=== PATIENT | male | born 1970 | race African-American/Black ===

== ENCOUNTER 2018-09-13 10:53 | Emergency (ER) | payer OTHER ==
[~2018-09-13] VITALS: Ht 188 cm; Wt 81.6 kg
[2018-09-13] MEDS ORDERED: CYCLOBENZAPRINE 10 MG TABLET. PO ONE (11:30)
[2018-09-13] MEDS ORDERED: HYDROcodone/APAP 5/325MG 1 TAB TABLET PO ONE (11:30)
[2018-09-13] MEDS ORDERED: LIDOCAINE/EPI/TETRACAINE TOPICAL GEL 3 ML. TP ONE (11:30)
[2018-09-13] MEDS ORDERED: DIPHTH,PERTUSS(ACELL),TET TOX 0.5 ML DISP.SYRIN. VAX IM ONE (11:30)
--- NOTE | 2018-09-13 12:27 | RAD ---
Examination: 2 views of the left tibia and fibula, 3 views of the lumbar spine, 4 views of the left knee, 2 views of the right hip with frontal view the pelvis HISTORY: History of right hip pain, back pain, fall COMPARISON: None available FINDINGS: There is mild compression change of L2 vertebral body, age indeterminate. Minimal retrolisthesis of L2 on L3. The facets appear to be well aligned. The bilateral femoral heads within the acetabula. The alignment of the tibia and fibula grossly appears unremarkable. The alignment of the knee joint grossly appears unremarkable. Mild soft tissue swelling identified in the infrapatellar region likely soft tissue injury. IMPRESSION: 1. Age indeterminate mild compression fracture of the L2 vertebral body. Correlate for point tenderness. 2. Mild soft tissue swelling identified in the left infrapatellar region likely soft tissue injury. Electronically signed by: Danny Arce MD (09/13/2018 12:24 PM) [id number]
--- NOTE | 2018-09-13 13:06 | PHYS DOC ---
Past Medical History Past Medical History: No Pertinent History Past Surgical History: No Surgical History Alcohol Use: None Drug Use: Marijuana Adult General Chief Complaint Chief Complaint: KNEE INJURY HPI HPI Patient is a 48 year old female with no significant medical history who presents today with left knee pain. Patient states he was walking a horse, he states horse took off running and he fell down hitting his left knee on a pipe. He is complaining of mild left knee pain, left marie pain. He states he has slight low back pain. Denies falling on his back. Denies any pain radiating to bilateral lower extremities. Denies any loss of bowel bladder function. He states his pain is worse on toughing his knee. He states immobilization has been relieving some of the pain. Review of Systems Review of Systems Constitutional: Denies fever or chills [] Eyes: Denies change in visual acuity, redness, or eye pain [] HENT: Denies nasal congestion or sore throat [] Respiratory: Denies cough or shortness of breath [] Cardiovascular: No additional information not addressed in HPI [] GI: Denies abdominal pain, nausea, vomiting, bloody stools or diarrhea [] : Denies dysuria or hematuria [] Musculoskeletal: Reports left knee pain. Reports low back pain. Integument: Denies rash or skin lesions [] Neurologic: Denies headache, focal weakness or sensory changes [] All other systems were reviewed and found to be within normal limits, except as documented in this note. Current Medications Current Medications Current Medications Medications (Trade) Dose Ordered Sig/Noam Start Time Stop Time Status Last Admin Dose Admin Acetaminophen/ Hydrocodone Bitart (Lortab 5/325) 2 tab 1X ONCE 09/13/18 11:30 09/13/18 11:31 DC 09/13/18 12:18 2 TAB Cyclobenzaprine HCl (Flexeril) 10 mg 1X ONCE 09/13/18 11:30 09/13/18 11:31 DC 09/13/18 12:18 10 MG Diphtheria/ Tetanus/Acell Pertussis (Boostrix) 0.5 ml ONCE ONCE 09/13/18 11:30 09/13/18 11:31 DC 09/13/18 12:20 0.5 ML Lidocaine/ Epinephrine (Let Topical) 3 ml 1X ONCE 09/13/18 11:30 09/13/18 11:31 DC 09/13/18 12:20 3 ML Allergies Allergies Allergies Coded Allergies Type Severity Reaction Last Updated Verified No Known Drug Allergies 09/13/18 No Physical Exam Physical Exam Constitutional: Well developed, well nourished, no acute distress, non-toxic appearance. [] HENT: Normocephalic, atraumatic, bilateral external ears normal, oropharynx moist, no oral exudates, nose normal. [] Eyes: PERRLA, EOMI, conjunctiva normal, no discharge. [] Neck: Normal range of motion, no tenderness, supple, no stridor. [] Cardiovascular:Heart rate regular rhythm, no murmur [] Lungs & Thorax: Bilateral breath sounds clear to auscultation [] Abdomen: Bowel sounds normal, soft, no tenderness, no masses, no pulsatile masses. [] Skin: Warm, dry, no erythema, no rash. [] Back: Diffuse paraspinal muscle tenderness the right lumbar spine, no midline lumbar spine tenderness, no CVA tenderness. [] Extremities: Soft tissue swelling noted on the left knee and proximal marie. Left anterior marie proximal end just below the knee with a superficial laceration approximately 5 cm long. Bleeding is well controlled. Tenderness to this region. Limited range of motion to the left knee due to pain. Full range of motion to the left foot and toes. +2 left pedal pulse. Cap refill less than 2 seconds the left toes. Sensation intact to the left lower extremity. Neurologic: Alert and oriented X 3, normal motor function, normal sensory function, no focal deficits noted. [] Psychologic: Affect normal, judgement normal, mood normal. [] Current Patient Data Vital Signs Vital Signs Date Time Temp Pulse Resp B/P (MAP) Pulse Ox O2 Delivery O2 Flow Rate FiO2 09/13/18 11:00 100.0 76 18 130/77 (94) 98 Room Air 100.0 EKG EKG [] Radiology/Procedures Radiology/Procedures []PROCEDURE: KNEE LEFT 4V Examination: 2 views of the left tibia and fibula, 3 views of the lumbar spine, 4 views of the left knee, 2 views of the right hip with frontal view the pelvis HISTORY: History of right hip pain, back pain, fall COMPARISON: None available FINDINGS: There is mild compression change of L2 vertebral body, age indeterminate. Minimal retrolisthesis of L2 on L3. The facets appear to be well aligned. The bilateral femoral heads within the acetabula. The alignment of the tibia and fibula grossly appears unremarkable. The alignment of the knee joint grossly appears unremarkable. Mild soft tissue swelling identified in the infrapatellar region likely soft tissue injury. IMPRESSION: 1. Age indeterminate mild compression fracture of the L2 vertebral body. Correlate for point tenderness. 2. Mild soft tissue swelling identified in the left infrapatellar region likely soft tissue injury. Electronically signed by: Danny Arce MD (09/13/2018 12:24 PM) [place] [id number] DICTATED and SIGNED BY: DANNY ARCE MD DATE: 09/13/18 1224 Course & Med Decision Making Course & Med Decision Making Pertinent Labs and Imaging studies reviewed. (See chart for details) This is a 48-year-old male patient presented to the ED today complaining of left knee pain, left marie pain, and low back pain after falling. No loss of consciousness. Lumbar spine x-rays interpreted by radiologist were noted for compression fracture of L2 age-indeterminate. Patient states he has been told he has lumbar fracture before. Left knee x-rays interpreted by radiologist were negative for any acute findings, noted for swelling. Tetanus was updated. Laceration on the left knee was cleaned, no stitches are needed. Ice elevation encouraged. Immobilizer provided. Neurovascular exam intact post-immobilizer placement by the ED RN. Follow-up with orthopedic doctor in one week. Dragon Disclaimer Dragon Disclaimer This electronic medical record was generated, in whole or in part, using a voice recognition dictation system. Departure Departure Impression: Primary Impression: Fall from standing Additional Impressions: Knee contusion Skin laceration Compression fx, lumbar spine Disposition: 01 HOME, SELF-CARE Condition: STABLE Referrals: NO PCP (PCP) SATNAM BEAN II, MD follow up in 1 week JAMIE BERRY MD follow up in 1 week Patient Instructions: Contusion, [id number], Laceration Care, Adult Additional Instructions: He was evaluated in the emergency room with left knee contusion. He also have a laceration to the left leg. Keep it clean and dry. Apply Neosporin to the area. He also noted to have a compression fracture of the lumbar spi [id number]. Please follow-up with your primary care doctor as well as the provided neurosurgeon to your back and orthopedic doctor for your knee. Try to ice and elevate the extremity. Apply Neosporin to the laceration site. Scripts Methylprednisolone (MEDROL) 4 Mg Tab.ds.pk 1 PKG PO UD, #1 PKG Prov: GONZALO DIAS FILEMON 09/13/18 Diclofenac Sodium (DICLOFENAC SODIUM) 50 Mg Tablet.dr 1 TAB PO BID, #20 TAB 0 Refills Prov: GONZALO DIAS FILEMON 09/13/18 Cyclobenzaprine Hcl (CYCLOBENZAPRINE HCL) 10 Mg Tablet 1 TAB PO TID, #30 TAB Prov: GONZALO DIAS FILEMON 09/13/18 Problem Qualifiers Primary Impression: Fall from standing Encounter type: initial encounter Qualified Codes: W19.XXXA - Unspecified fall, initial encounter Additional Impressions: Knee contusion Encounter type: initial encounter Laterality: left Qualified Codes: S80.02XA - Contusion of left knee, initial encounter Compression fx, lumbar spine Encounter type: initial encounter Lumbar vertebra fracture level: L2 Qualified Codes: S32.020A - Wedge compression fracture of second lumbar vertebra, initial encounter for closed fracture GONZALO DIAS FILEMON September 13, 2018 13:06
[2018-09-13] MEDS ORDERED: CYCL10TA2 PO (13:21)
[2018-09-13] MEDS ORDERED: DICL50TA4 PO (13:21)
[2018-09-13] MEDS ORDERED: METH4TAB2 PO (13:21)
[2018-09-13 14:15] VITALS: BP 122/63
== END 2018-09-13 14:19 | disposition home or self-care (01) ==
LOC: ER 10:53
DX: S32.020A Wedge compression fracture of second lumbar vertebra, initial encounter for closed fracture (principal); S80.02XA Contusion of left knee, initial encounter; S81.812A Laceration without foreign body, left lower leg, initial encounter; M25.551 Pain in right hip; V80.010A Animal-rider injured by fall from or being thrown from horse in noncollision accident, initial encounter; Y93.52 Activity, horseback riding; Y92.89 Other specified places as the place of occurrence of the external cause; Y99.8 Other external cause status
CPT/HCPCS: 29505; 72100; 73502; 73564; 73590; 90471; 90715; 99284-25